=== PATIENT | male | born 1980 | race African-American/Black ===

== ENCOUNTER 2017-09-23 19:18 | Emergency (ER) | payer SELFPAY ==
[~2017-09-23] VITALS: Ht 180.3 cm; Wt 110.8 kg
[~2017-09-23 19:18] MED LIST: ZOFR4TAB PO
[2017-09-23 19:32] VITALS: BP 150/82; PULSE 76; RESP 18; TEMP 98; O2SAT 99
[2017-09-23 19:38] LABS: AUTOMATED NEUTROPHIL # 2.8 TH/MM3 (1.8-7.7); BASOPHIL % 0.6 % (0.0-2.0); EOSINOPHIL # 0.1 TH/MM3 (0-0.4); HEMATOCRIT 40.9 % (39.0-51.0); HEMOGLOBIN 13.4 GM/DL (13.0-17.0); LYMPH % 45.5 % (9.0-44.0); LYMPHOCYTE # 3.2 TH/MM3 (1.0-4.8); MEAN CELL VOLUME 88.7 FL (80.0-100.0); MEAN CORPUSCULAR HGB CONC 32.7 % (32.0-36.0); MEAN PLATELET VOLUME 8.4 FL (7.0-11.0); MONO % 9.6 % (0.0-8.0); MONOCYTE # 0.6 TH/MM3 (0-0.9); NEUT % 42.3 % (16.0-70.0); PLATELET COUNT 204 TH/MM3 (150-450); RED BLOOD COUNT 4.61 MIL/MM3 (4.50-5.90); RED CELL DISTRIBUTION WIDTH 13.2 % (11.6-17.2); WHITE BLOOD COUNT 6.7 TH/MM3 (4.0-11.0)
[2017-09-23 19:39] VITALS: RESP 18; O2SAT 99
[2017-09-23 19:47] LABS: CHLORIDE 105 MEQ/L (98-107); SODIUM (NA) 140 MEQ/L (136-145)
[2017-09-23 19:50] LABS: BICARBONATE 29.1 MEQ/L (21.0-32.0); CALCIUM 8.4 MG/DL (8.5-10.1); GLUCOSE,RANDOM 103 MG/DL (74-106)
[2017-09-23 19:51] LABS: BLOOD UREA NITROGEN 15 MG/DL (7-18)
[2017-09-23 19:54] LABS: GLOMERULAR FILTRATION RATE 91 ML/MIN (>89)
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
[2017-09-23 19:58] LABS: TROPONIN I LESS THAN 0.02 NG/ML (0.02-0.05)
--- NOTE | 2017-09-23 20:04 | RADRPT ---
EXAM DATE/TIME: 09/23/2017 19:39 [facility] COMPARISON: No previous studies available for comparison. INDICATIONS : Right side chest pain today, no known trauma. MEDICAL HISTORY : None. SURGICAL HISTORY : None. ENCOUNTER: Initial ACUITY: 1 day PAIN SCORE: 4/10 LOCATION: Right chest FINDINGS: PA and lateral views of the chest demonstrate the lungs to be symmetrically aerated without evidence of mass, infiltrate or effusion. The cardiomediastinal contours are unremarkable. Osseous structure s are intact. CONCLUSION: No acute disease. Ayden Sinha MD on September 23, 2017 at 20:02 Board Certified Radiologist. This report was verified electronically.
[2017-09-23] MEDS ORDERED: IBUP1TAB7 PO (20:14)
[2017-09-23] MEDS ORDERED: KETOROLAC TROMETHAMINE 60 MG/2 ML (IM) VIAL IVP ONE (20:15)
[2017-09-23 20:41] VITALS: BP 140/82
--- NOTE | 2017-09-24 18:41 | EKG ---
Date Performed: 09/23/2017 Time Performed: 19:36:54 PTAGE: 37 years EKG: Sinus rhythm INDETERMINATE AXIS RIGHT BUNDLE BRANCH BLOCK ABNORMAL ECG PREVIOUS TRACING : 09/13/2016 17.04 Compared to prior tracing no significant change DOCTOR: Jasmyne Gay Interpretating Date/Time 09/24/2017 18:39:11
== END 2017-09-23 20:44 | disposition home or self-care (01) ==
LOC: PHED 19:18
DX: R07.89 Other chest pain (principal); I45.10 Unspecified right bundle-branch block; F17.210 Nicotine dependence, cigarettes, uncomplicated
CPT/HCPCS: 71046; 80048; 82550; 82552; 84484; 85025; 93005; 96374; 99285; J1885

== ENCOUNTER 2017-12-25 18:53 | Emergency (ER) | payer SELFPAY ==
[~2017-12-25] VITALS: Ht 180.3 cm; Wt 109.0 kg
[~2017-12-25 18:53] MED LIST changes: +IBUP1TAB7 PO; -ZOFR4TAB PO
[2017-12-25 18:57] VITALS: BP 147/76; PULSE 74; RESP 16; TEMP 97.8; O2SAT 98
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
[2017-12-25] MEDS ORDERED: LIDOCAINE HCL 1% PF 30 ML VIAL ONE (19:27)
[2017-12-25] MEDS ORDERED: AZITHROMYCIN PWD FOR SUSP 1 GM PACKET PO ONE (19:30)
[2017-12-25] MEDS ORDERED: metroNIDAZOLE 500 MG TAB PO ONE (19:30)
[2017-12-25] MEDS ORDERED: LIDOCAINE HCL 1% 50 ML VIAL XX ONE (19:30)
[2017-12-25] MEDS ORDERED: cefTRIAXone 250 MG VIAL IM ONE (19:30)
== END 2017-12-25 20:06 | disposition home or self-care (01) ==
LOC: PHEFT 18:53
DX: Z11.3 Encounter for screening for infections with a predominantly sexual mode of transmission (principal); J45.909 Unspecified asthma, uncomplicated; F17.210 Nicotine dependence, cigarettes, uncomplicated
CPT/HCPCS: 96372; 99283; J0696